=== PATIENT | female | born 1970 | race Caucasian/White ===

== ENCOUNTER 2020-11-02 19:03 | Emergency (ER) | payer BC ==
[2020-11-02 19:36] VITALS: TEMP 98.5; BMI 34.7
[2020-11-02] MEDS ORDERED: IBUPROFEN 600 MG TABLET (FP) PO ONE (21:11)
[2020-11-02] MEDS ORDERED: ACETAMINOPHEN 500 MG TABLET (FP) PO ONE (21:11)
[2020-11-02] MEDS ORDERED: DOXYCYCLINE HYCLATE 100 MG CAPSULE PO ONE ×2 (21:47→22:16)
[2020-11-02] MEDS ORDERED: oxyCODONE HCL 5 MG TABLET PO ONE (21:48)
[2020-11-02] MEDS ORDERED: oxyCODONE HCL 5 MG TABLET ONE (22:15)
[2020-11-02 23:11] VITALS: BP 164/96; PULSE 77
== END 2020-11-02 23:17 | disposition home or self-care (01) ==
LOC: JER 19:03
DX: K08.89 Other specified disorders of teeth and supporting structures (principal); I10 Essential (primary) hypertension
CPT/HCPCS: 99284-25